=== PATIENT | male | born 1985 | race Caucasian/White ===

== ENCOUNTER → 2016-06-18 | Outpatient (REF) | LOC: ZLAB.WCH 10:39 | DX: Z01.89 Encounter for other specified special examinations (principal) ==

== ENCOUNTER → 2016-08-13 | Outpatient (REF) | LOC: WSOH 14:05 | DX: Z02.89 Encounter for other administrative examinations (principal) ==

== ENCOUNTER → 2021-01-11 | Outpatient (CLI) | payer OTHER | LOC: COL.LAB 14:56 | DX: Z01.89 Encounter for other specified special examinations (principal) ==